=== PATIENT | male | born 1985 | race Caucasian/White ===

== ENCOUNTER 2019-10-11 22:21 | Emergency (ER) | payer OTHER ==
[~2019-10-11] VITALS: Ht 177.8 cm; Wt 86.2 kg
[2019-10-11 22:29] VITALS: Ht 177.8 cm; Wt 86.2 kg
[2019-10-11 23:16] LABS: BASOPHIL % 0.3 % (0-2); PLATELET COUNT 204 x10^3mcL (130-400); RED CELL DISTRIBUTION WIDTH 12.9 % (11.5-14.5)
[2019-10-11 23:24] LABS: CALCIUM 8.4 mg/dL (8.5-10.1); CARBON DIOXIDE 24.2 mmol/L (21-32); CHLORIDE SERUM 106 mmol/L (98-107); CREATININE SERUM 0.9 mg/dL (0.7-1.3); GFR1 > 60 mL/min; GLUCOSE SERUM 95 mg/dL (74-106); SODIUM SERUM 142 mmol/L (136-145)
[2019-10-11 23:28] LABS: ALBUMIN 4.1 g/dL (3.4-5.0); ALKALINE PHOSPHATASE 56 U/L (46-116); ALT/SGPT 47 U/L (16-63); AST/SGOT 23 U/L (15-37); BILIRUBIN TOTAL 0.5 mg/dL (0.20-1.00); TOTAL PROTEIN, SERUM 7.5 g/dL (6.4-8.2)
[2019-10-12 02:45] LABS: microscopic required? NO
[2019-10-12 02:50] LABS: UA SPECIFIC GRAVITY 1.015 (1.005-1.035); urine erythrocyte NEGATIVE (NEGATIVE)
[2019-10-12 03:04] LABS: AMPHETAMINE QUAL UR NONE DETECTED (See below)
[2019-10-12 05:10] VITALS: BP 104/67
== END 2019-10-12 05:10 | disposition home or self-care (01) ==
LOC: ED 22:21
PROVIDERS: Emergency Medicine
DX: F19.10 Other psychoactive substance abuse, uncomplicated (principal); R40.4 Transient alteration of awareness; F13.10 Sedative, hypnotic or anxiolytic abuse, uncomplicated; F10.129 Alcohol abuse with intoxication, unspecified; R11.10 Vomiting, unspecified
CPT/HCPCS: G0480; J2405; J7030

== ENCOUNTER 2019-10-12 12:32 | Emergency (ER) | payer OTHER ==
[~2019-10-12] VITALS: Ht 177.8 cm; Wt 77.1 kg
[2019-10-12 12:51] VITALS: Ht 177.8 cm; Wt 77.1 kg
[2019-10-12 15:40] VITALS: BP 128/78
== END 2019-10-12 18:15 | disposition left against medical advice (07) ==
LOC: ED 12:32
PROVIDERS: Emergency Medicine
DX: S40.812A Abrasion of left upper arm, initial encounter (principal); S40.811A Abrasion of right upper arm, initial encounter; F32.9 Major depressive disorder, single episode, unspecified; X78.0XXA Intentional self-harm by sharp glass, initial encounter; Y93.89 Activity, other specified; Y92.89 Other specified places as the place of occurrence of the external cause; Y99.8 Other external cause status
CPT/HCPCS: G0480